=== PATIENT | female | born 1955 | race Caucasian/White ===

== ENCOUNTER → 2016-10-31 | Outpatient (CLI) | payer MEDICARE, OTHER ==
[~2016-10-31] MED LIST: AMITRIPTYLINE H10 M1 PO; ANTIVERT 25MG25 MG PO; ASPIRIN 81M81 MG/TA2 PO; B-12 100 MCG; CARAFATE S1 GM/10 ML PO; FOSAMAX 70MG TA70 MG PO; LOPRESSOR 225 MG/TAB PO; MASON NATURAL2000 IU PO; MULTIVITAMIN1 CTB PO; NATURE'S BLE1000 MCG PO; NEXIUM 20MG20 MG PO; NORCO 325 MG-51 TAB PO; OMEGA-3 FISH1000 MG PO; PAPAYA ENZYME1 TA1 PO; PROZAC40 MG PO; SYNTHROID 0.0.025 MG PO; TIROSINT100 MC1 PO; VITAMIN D 1001000 IU PO
== END ==
LOC: MHCPAIN 09:25
DX: G89.29 Other chronic pain (principal); R10.11 Right upper quadrant pain; M79.2 Neuralgia and neuritis, unspecified; Z87.891 Personal history of nicotine dependence
CPT/HCPCS: G0463

== ENCOUNTER → 2016-11-09 | Outpatient (CLI) | payer MEDICARE, OTHER | LOC: MHCPAIN 10:25 | DX: G89.28 Other chronic postprocedural pain (principal) | CPT/HCPCS: G0463; J1100 ==

== ENCOUNTER → 2016-11-21 | Outpatient (CLI) | payer MEDICARE, OTHER | LOC: MHCPAIN 09:41 | DX: G89.29 Other chronic pain (principal); R10.12 Left upper quadrant pain; M79.2 Neuralgia and neuritis, unspecified; Z87.891 Personal history of nicotine dependence | CPT/HCPCS: G0463 ==

== ENCOUNTER → 2016-11-23 | Outpatient (CLI) | payer MEDICARE, OTHER | LOC: MHCPAIN 10:43 | DX: G89.29 Other chronic pain (principal); R10.12 Left upper quadrant pain | CPT/HCPCS: J1100 ==

== ENCOUNTER → 2017-01-22 | Outpatient (CLI) | payer MEDICARE, OTHER | LOC: MHCPAIN 10:24 | DX: G89.29 Other chronic pain (principal); M79.2 Neuralgia and neuritis, unspecified; M79.1 Myalgia; R10.9 Unspecified abdominal pain | CPT/HCPCS: G0463 ==

== ENCOUNTER → 2017-04-25 | Outpatient (CLI) | payer MEDICARE, OTHER | LOC: MHCPAIN 09:45 | DX: G89.29 Other chronic pain (principal); R10.9 Unspecified abdominal pain; M79.2 Neuralgia and neuritis, unspecified; Z87.891 Personal history of nicotine dependence | CPT/HCPCS: G0463 ==